=== PATIENT | female | born 1975 | race Caucasian/White ===

== ENCOUNTER 2017-02-25 12:42 | Emergency (ER) | payer BC, MEDICARE ==
--- NOTE | ~2017-02-25 | CR58 ---
[facility] A Service of [facility] RADIOLOGY TEXT RESULTS PATIENT: MITCHELL MELO LOCATION: [facility] : [birth year] UNIT #: [id number] AGE: [address]: Silva Ayers APRN SEX: F ORDER DR: [id number] [facility] [address] [place], [place] [address] [id number] E MR#: [id number] Acc #: [id number] NAME: MITCHELL MELO. : 1975 SEX: F STUDY DATE/TIME: 02/25/2017 14:39 UNIT: [facility] ROOM: STUDY DESCRIPTION: CR Cervical Spine 2 or 3 Views Attending Physician: Silva Ayers A.P.R.N. Ordering Physician: Ed Joshua Steele M.D. Primary Care Physician: Primary Care Physician No MEDICAL IMAGING REPORT This report is preliminary unless electronic signature is present EXAM Cervical spine 02/25 HISTORY Right side neck pain for 2 days. No trauma. FINDINGS Four views of the cervical spine were obtained. There is reversal of the normal lordosis, which may indicate spasm. There is mild degenerative disc space narrowing at C5-6. No fractures are seen and there is no subluxation. Prevertebral soft tissues are normal. IMPRESSION Mild degenerative disc disease at C5-6. No fractures are seen. Reversal of lordosis can be seen in the setting of spasm. Dictated by... Jaziel Shoemaker Jr., M.D. THIS IS AN ELECTRONICALLY VERIFIED REPORT Jaziel Shoemaker Jr., M.D. at 02/26/2017 6:11 AM RLK/jennifer TD: 02/25/2017 17:43 JOB #: [id number] MEDICAL IMAGING REPORT Page 1 of 1 COPY
[~2017-02-25 12:42] MED LIST: CATAFLAM50 MG PO; CIPRO PO; DARVOCET-N 1001 TAB PO; DIAZEPAM PO; FLEXERIL PO; ORUDIS75 M1 PO; PERCOCET5/325 PO; PRILOSEC PO; PYRIDIUM PO; VICODIN 5/1 TAB 5/50 PO; VOLTAREN75 MG PO
== END 2017-02-25 15:34 | disposition home or self-care (01) ==
LOC: CFTX 12:42 → CED 12:42 → CFTX 15:20
DX: M43.6 Torticollis (principal); F41.9 Anxiety disorder, unspecified; Z90.49 Acquired absence of other specified parts of digestive tract; Z90.710 Acquired absence of both cervix and uterus; Z88.0 Allergy status to penicillin; Z88.1 Allergy status to other antibiotic agents; Z88.5 Allergy status to narcotic agent; Z88.8 Allergy status to other drugs, medicaments and biological substances
CPT/HCPCS: 72040; 96372; 99283; J1885

== ENCOUNTER 2017-03-05 20:16 | Emergency (ER) | payer BC, MEDICARE ==
--- NOTE | ~2017-03-05 | CR230 ---
[facility] A Service of [facility] RADIOLOGY TEXT RESULTS PATIENT: MITCHELL MELO LOCATION: [facility] : 77 UNIT #: [id number] AGE: [address]: Evette De Los Santos APRN SEX: F ORDER DR: [id number] [facility] [address] [place], [place] [address] [id number] E MR#: [id number] Acc #: [id number] NAME: MITCHELL MELO. : 1975 SEX: F STUDY DATE/TIME: 03/05/2017 22:10 UNIT: [place] ROOM: STUDY DESCRIPTION: CR Shoulder Min 2 View Rt Attending Physician: Evette De Los Santos A.P.R.N. Ordering Physician: Evette De Los Santos A.P.R.N. Primary Care Physician: No Primary Care Physician MEDICAL IMAGING REPORT This report is preliminary unless electronic signature is present EXAM Right shoulder HISTORY Right shoulder pain and numbness and tingling for 1.5 weeks. No known injury. FINDINGS AP view with internal and external rotation of the shoulder girdle shows satisfactory relationship of the humeral head and glenoid fossa. The joint space is normal. There is no identifiable fracture or dislocation or bony destructive process about the shoulder girdle anatomy. The acromioclavicular joint is normal. There is no radiopaque foreign body in the region. IMPRESSION Normal shoulder. Dictated by... Ibrahima Wagner M.D. THIS IS AN ELECTRONICALLY VERIFIED REPORT Ibrahima Wagner M.D. at 03/06/2017 5:54 AM HAILEY/rnr TD: 03/06/2017 01:18 JOB #: [id number] MEDICAL IMAGING REPORT [facility] A Service [facility] RADIOLOGY TEXT RESULTS PATIENT: MITCHELL MELO LOCATION: [facility] : 77 UNIT #: [id number] AGE: [address]: Evette De Los Santos APRN SEX: F ORDER DR: Page 1 of 1 COPY
--- NOTE | ~2017-03-05 | CT52 ---
[facility] A Service [facility] RADIOLOGY TEXT RESULTS PATIENT: MITCHELL MELO LOCATION: [facility] : 77 UNIT #: [id number] AGE: [address]: Evette De Los Santos APRN SEX: F ORDER DR: [id number] [facility] [address] [place], [place] [address] [id number] E MR#: [id number] Acc #: [id number] NAME: MITCHELL MELO. : 1975 SEX: F STUDY DATE/TIME: 03/05/2017 22:32 UNIT: [facility] ROOM: STUDY DESCRIPTION: CT Cervical Spine Wo Cont Attending Physician: Evette De Los Santos A.P.R.N. Ordering Physician: Evette De Los Santos A.P.R.N. Primary Care Physician: No Primary Care Physician MEDICAL IMAGING REPORT This report is preliminary unless electronic signature is present EXAM CT scan of the cervical spine without contrast HISTORY Right sided neck and shoulder pain since 03/02/2017 which is getting worse. Possible seizure in sleep on 03/02/2017. COMPARISON 06/12/2014. TECHNIQUE Axial 2 mm images were obtained through the cervical spine and sagittal and coronal reconstructions were generated. This CT exam was performed with one or more of the following radiation dose reduction techniques: automatic control, adjustment of mA and/or kV according to patient size, and iterative reconstruction. FINDINGS The alignment is normal. There is minimal posterior spurring at C5-6. The other disc spaces are normal IMPRESSION 1. Mild degenerative changes C5-6 2. No evidence of acute injury. Dictated by... Ibrahima Wagner M.D. THIS IS AN ELECTRONICALLY VERIFIED REPORT Ibrahima Wagner M.D. at 03/06/2017 5:54 AM [facility] A Service [facility] RADIOLOGY TEXT RESULTS PATIENT: MITCHELL MELO LOCATION: [facility] : 77 UNIT #: [id number] AGE: [address]: Evette De Los Santos APRN SEX: F ORDER DR: HAILEY/adiel TD: 03/06/2017 04:54 JOB #: [id number] MEDICAL IMAGING REPORT Page 1 of 1 COPY
== END 2017-03-05 23:20 | disposition home or self-care (01) ==
LOC: CFTX 20:16 → CED 20:16 → CFTX 21:56
DX: M43.6 Torticollis (principal); K21.9 Gastro-esophageal reflux disease without esophagitis; F41.9 Anxiety disorder, unspecified; Z90.49 Acquired absence of other specified parts of digestive tract; Z90.710 Acquired absence of both cervix and uterus; Z79.899 Other long term (current) drug therapy; Z88.8 Allergy status to other drugs, medicaments and biological substances; Z88.5 Allergy status to narcotic agent; Z88.0 Allergy status to penicillin; Z88.1 Allergy status to other antibiotic agents
CPT/HCPCS: 72125; 73030; 96372; 99284; J1885